=== PATIENT | male | born 1955 | race Caucasian/White ===

== ENCOUNTER → 2020-06-05 | Outpatient (CLI) | payer MEDICARE ==
[2020-06-05 10:57] LABS: URINE APPEARANCE CLOUDY; URINE BILIRUBIN NEGATIVE (NEGATIVE); URINE BLOOD NEGATIVE (NEGATIVE); URINE COLOR YELLOW; URINE GLUCOSE NEGATIVE (NEGATIVE); URINE KETONE NEGATIVE (NEGATIVE); URINE LEUKOCYTE ESTERASE 2+ (NEGATIVE); URINE NITRATE POSITIVE (NEGATIVE); URINE PROTEIN(semi-quant) TRACE mg/dL (NEGATIVE); URINE UROBILINOGEN NORMAL (NORMAL); URINE WBC >50 /hpf (0-3)
[2020-06-05 11:02] LABS: POTASSIUM 4.7 mmol/L (3.5-5.1)
[2020-06-05 11:03] LABS: ALBUMIN 4.3 g/dL (3.4-4.8)
[2020-06-05 11:04] LABS: CALCIUM 9.6 mg/dL (8.3-10.5)
[2020-06-05 11:05] LABS: TOTAL PROTEIN 7.8 g/dL (6.2-8.1)
[2020-06-05 11:07] LABS: TOTAL BILIRUBIN 0.8 mg/dL (0.2-1.2)
[2020-06-05 11:12] LABS: MAGNESIUM 2.03 mg/dL (1.60-2.60)
[2020-06-05 11:21] LABS: EOS # 0.2 (0.04-0.40); EOS % 2.8 % (0.0-4.0); HEMATOCRIT 44.5 % (42.0-52.0); HEMOGLOBIN 14.3 g/dL (13.5-18.0); LYMPH# 1.8 (1.50-4.00); MEAN CELL VOLUME 92 fl (78-100); MEAN CORPUSCULAR HEMOGLOBIN 29 pg (27-31); MEAN CORPUSCULAR HGB CONC 32 g/dL (33-37); MEAN PLATELET VOLUME 10.1 fl (7.4-10.4); MONO # 0.8 (0.20-0.80); NEU # 3.7 (1.40-6.50); PLATELET COUNT 310 K/mm3 (130-400); RED BLOOD COUNT 4.86 M/mm3 (4.20-5.60); RED CELL DISTRIBUTION WIDTH 13.1 % (11.5-14.5); WHITE BLOOD COUNT 6.5 K/mm3 (4.8-10.8)
[2020-06-05 12:44] LABS: ERYTHROCYTE SEDIMENTATION RATE 7 mm/hr (0-20)
== END ==
LOC: LAB 10:21
PROVIDERS: Internal Medicine
DX: Z00.00 Encounter for general adult medical examination without abnormal findings (principal); Z12.5 Encounter for screening for malignant neoplasm of prostate; Z12.11 Encounter for screening for malignant neoplasm of colon; N30.01 Acute cystitis with hematuria

== ENCOUNTER → 2021-06-02 | Outpatient (CLI) | payer MEDICARE ==
[~2021-06-02] VITALS: Ht 190.5 cm; Wt 87.3 kg
[2021-06-02 09:35] VITALS: BP 105/76
[2021-06-02 10:00] VITALS: BP 96/70
[2021-06-02 10:15] VITALS: BP 96/65
[2021-06-02 10:30] VITALS: BP 97/69
[2021-06-02 10:45] VITALS: BP 98/69
[2021-06-02 11:00] VITALS: BP 107/72
== END ==
LOC: AMSURD 09:20
DX: U07.1 COVID-19 (principal); E66.9 Obesity, unspecified
CPT/HCPCS: M0247; Q0247

== ENCOUNTER → 2022-11-01 | Outpatient (CLI) | payer MEDICARE | LOC: RAD 13:27 | DX: R51.9 Headache, unspecified (principal) ==